=== PATIENT | female | born 1980 | race Caucasian/White ===

== ENCOUNTER → 2019-07-16 | Outpatient (CLI) | payer OTHER ==
--- NOTE | 2019-07-20 11:24 | CARD ---
MR#: [id number] Date of Study: 07/16/2019 Ordering Physician: HALIE PAEZ, Referring Physician: HALIE PAEZ, Tech: Janet Kendall CHARLEE APPROVED REPORT INDICATION Chest Pain Reason : Patient complained of pain PROCEDURE The patient underwent an Exercise Stress Test using the Cosme Protocol. Blood pressure, heart rate, a nd EKG were monitored. An Echocardiogram was performed by agricultural research technician in four stages in quad fashion. At peak stress four se lected images were obtained and placed side by side with resting images for comparison. STRESS ECHO FINDINGS The resting Echocardiogram showed normal left ventricular systolic contractility with an estimated Ej ection Fraction of about 60 %. The Resting Echocardiogram showed normal augmentation of myocardial wall segments using a 16 segment model. The Stress Echocardiogram showed normal augmentation of myocardial wall segments using a 16 segment m liu. The Stress Echocardiogram left ventricular systolic contractility has an estimated Ejection Fraction of about 80%. Test Type: Exercise Stress Nurse/Tech: Mela Isbell RN Test Indications: Chest Pain Cardiac History and Allergies: Family history Medications: see EMR Medical History: see EMR Resting ECG: SR Resting Heart Rate: 72 bpm Resting Blood Pressure: 105/63mmHg Pretest Chest Pain: No chest pain Nurse/Tech Notes S1,S2 and lungs clear to auscultation. Stress Symptoms No chest pain or symptoms. Patient stated she felt a couple palpitations. POST EXERCISE Reason for Termination: Reached target heart rate Target HR: Yes Max HR: 188 bpm 103% of Maximum Predicted HR: 182 bpm Exercise duration: 10:02 min:sec, 4 Stage Exercise capacity: 12.8METs Max Blood Pressure: 135/60mmHg Blood Pressure response to exercise: Normal blood pressure response during stress. Heart Rate response to exercise: WNL Chest Pain: No. Arrhythmia: Yes. PVC PVC's ST Change: Yes. slight ST elevation in II,III, and aVF and ST depression in aVR with stress which ret urned to baseline by end of study INTERPRETATION Stress EKG Conclusion: Baseline EKG showed sinus rhythm. No ischemic changes at peak stress. No arr hythmias. Preliminary Notification Critical Value: No <Conclusion> Treadmill exercise stress echocardiogram did not show any evidence of ischemia or infarct. Normal left ventricle systolic function with ejection fraction estimated at 60%. Patient had good activity tolerance. Low risk for cardiac events. Signed by : Mendoza Linder, Electronically Approved : 07/16/2019 14:37:14
== END | disposition home or self-care (01) ==
LOC: ECHO 12:42
PROVIDERS: ATTEND Internal Medicine
DX: I49.3 Ventricular premature depolarization (principal); Z82.49 Family history of ischemic heart disease and other diseases of the circulatory system
CPT/HCPCS: 93017; 93350